=== PATIENT | female | born 1955 | race Caucasian/White ===

== ENCOUNTER 2017-06-24 04:49 | Emergency (ER) | payer OTHER ==
[~2017-06-24] VITALS: Ht 162.5 cm; Wt 51.7 kg
[~2017-06-24 04:49] MED LIST: DRAMAMINE LESS25 MG PO; OMEPRAZOLE20 M2 PO; UNIPHYLL PO; VENTOLIN H0.09 MG/AC INH
== END 2017-06-24 06:54 | disposition home or self-care (01) ==
LOC: ED 04:49
DX: S90.32XA Contusion of left foot, initial encounter (principal); J45.909 Unspecified asthma, uncomplicated; Z98.890 Other specified postprocedural states; Z91.018 Allergy to other foods; Z91.030 Bee allergy status; Z79.899 Other long term (current) drug therapy; X58.XXXA Exposure to other specified factors, initial encounter; Y93.89 Activity, other specified; Y92.69 Other specified industrial and construction area as the place of occurrence of the external cause; Y99.9 Unspecified external cause status